=== PATIENT | female | born 1960 | race Caucasian/White ===

== ENCOUNTER → 2021-07-22 | Outpatient (CLI) | payer OTHER ==
[~2021-07-22] VITALS: Ht 170.2 cm; Wt 91.2 kg
[~2021-07-22] MED LIST: BACLOFEN 10MG T10 MG PO; CALCIUM PO; CULTURELLE PO; FAMOTIDINE 20 M20 MG PO; FIBER0.4 GM PO; FLORANEX TABLE1 EACH PO; HYDROCODON-ACE1 EAC7 PO; IBUPROFEN 400400 M1 PO; LEVOTHYROXINE75 MC1 PO; LOMOTIL TABLET1 EACH PO; MEDROLDOSEPACK PO; MULTIPLE VITAM1 EAC2 PO; NABUMETONE 500500 M2 PO; NYSTATIN 1100000 U/M PO; PERCOCET 5-3251 EACH PO; PROAIR HFA8.5 GM INH; RENAPLEX TABLE1 EACH PO; TYLENOL PO; VANCOMYCIN100 MG/M1; XANAX 0.5 MG0.5 MG PO; ZOCOR40 MG PO
[2021-07-22 09:45] VITALS: BP 154/75
--- NOTE | 2021-07-22 10:14 | NUR ---
Pain Clinic Assessment: 1. History of Osteoarthritis: Not Applicable History of Rheumatoid Arthritis: Not Applicable 2. Height: 5 ft. 7 in. 170.2 cm. Weight: 201.0 lb. oz. 91.173 kg. Patient's BMI: 31.5 3. Vital Signs: BP: 154/75 Pulse: 85 Resp: 16 Temp: 02 Sat: 98 ECG Mon: 4. Pain Intensity: 5 5. Fall Risk: Dizziness: Y Needs help standing or walking: N Fallen in the last 3 months: N Fall risk comments: 6. Patient on Blood Thinner: None 7. History of Hypertension: N 8. Opioid Therapy greater than 6 weeks: Opiate Contract Signed: 9. Risk Assessment Tool Provided: 0 LOW RISK 10. Functional Assessment Tool: 39/ 11. Recreational Drug Use: Never Drug Type: Tobacco Use: Never Smoker Tobacco Type: Amount or Packs/day: How Many Years: Alcohol Use: No Frequency: Quant:
== END ==
LOC: PAIN 06:57
PROVIDERS: ATTEND Anesthesiology Pain Medicine
DX: D05.11 Intraductal carcinoma in situ of right breast (principal); K21.9 Gastro-esophageal reflux disease without esophagitis; J45.909 Unspecified asthma, uncomplicated; E78.5 Hyperlipidemia, unspecified; E03.9 Hypothyroidism, unspecified; M54.17 Radiculopathy, lumbosacral region; B00.89 Other herpesviral infection; M54.50 Low back pain, unspecified; Z79.899 Other long term (current) drug therapy; Z88.8 Allergy status to other drugs, medicaments and biological substances

== ENCOUNTER → 2021-08-12 | Outpatient (CLI) | payer OTHER ==
[~2021-08-12] VITALS: Ht 170.2 cm; Wt 90.8 kg
[2021-08-12 09:47] VITALS: BP 127/92
--- NOTE | 2021-08-12 09:59 | NUR ---
Pain Clinic Assessment: 1. History of Osteoarthritis: Not Applicable History of Rheumatoid Arthritis: Not Applicable 2. Height: 5 ft. 7 in. 170.2 cm. Weight: 200.2 lb. oz. 90.810 kg. Patient's BMI: 31.3 3. Vital Signs: BP: 127/92 Pulse: 86 Resp: 20 Temp: 02 Sat: 96 ECG Mon: 4. Pain Intensity: 5 5. Fall Risk: Dizziness: N Needs help standing or walking: N Fallen in the last 3 months: N Fall risk comments: 6. Patient on Blood Thinner: None 7. History of Hypertension: N 8. Opioid Therapy greater than 6 weeks: Opiate Contract Signed: 9. Risk Assessment Tool Provided: 0 LOW RISK 10. Functional Assessment Tool: 39/ 11. Recreational Drug Use: Never Drug Type: Tobacco Use: Never Smoker Tobacco Type: Amount or Packs/day: How Many Years: Alcohol Use: No Frequency: Quant:
== END | disposition home or self-care (01) ==
LOC: PAIN 07:00
PROVIDERS: ATTEND Anesthesiology Pain Medicine
DX: M54.16 Radiculopathy, lumbar region (principal); G89.29 Other chronic pain; E03.9 Hypothyroidism, unspecified; E78.5 Hyperlipidemia, unspecified; J45.909 Unspecified asthma, uncomplicated; K21.9 Gastro-esophageal reflux disease without esophagitis; Z98.890 Other specified postprocedural states; Z87.19 Personal history of other diseases of the digestive system; Z79.899 Other long term (current) drug therapy; Z88.8 Allergy status to other drugs, medicaments and biological substances